=== PATIENT | female | born 1955 ===

== ENCOUNTER → 2016-08-26 | Day surgery (SDC) | payer OTHER ==
[~2016-08-26] VITALS: Ht 162.6 cm; Wt 94.3 kg
[~2016-08-26] MED LIST: ASPI1TAB PO; ATOR1TAB21 PO; CLINDAMYCIN 600 MG in APPROPRIATE DILUENT 1 EA IV ONE; HYDR12.55 PO; HYDROmorphone HCL 1 MG/ML SYRINGE (J1170) IV PRN; KETAMINE HCL 200 MG/20 ML VIAL As Ordered ONE; KETOROLAC 60 MG/2 ML VIAL (J1885) As Ordered ONE; LIDOCAINE 2% INJ 100 MG/5 ML SDV (FOR ANES.) As Ordered ONE; LIDOCAINE 2% W/ EPINEPHRINE 1.7 ML DENTAL INJ As Ordered ONE; LIDOCAINE 2% W/ EPINEPHRINE 1.7 ML DENTAL INJ XX ONE; LISI30TA4 PO; LR 1,000 ML IV SCH; LYRI75CA PO; METF500T PO; MIDAZOLAM INJ 2 MG/2 ML VIAL (J2250) As Ordered ONE; NEXI20CA PO; ONDANSETRON 4MG/2ML VIAL (J2405) As Ordered ONE; ONDANSETRON 4MG/2ML VIAL (J2405) IV PRN; PANT40TA2 PO; PERCOCET 5MG/325MG TAB PO PRN; PROPOFOL 200 MG/20 ML VIAL As Ordered ONE; [UNRECOGNIZED DRUG - OTHER] TOP; dexameTHASONE 4 MG/ML 1ML VIAL (J1100) IV ONE; fentaNYL 100 MCG/2 ML INJECTION (J3010) As Ordered ONE; fentaNYL 100 MCG/2 ML INJECTION (J3010) IV PRN
[2016-08-26 13:30] VITALS: BP 168/88
--- NOTE | 2016-08-27 08:48 | RO ---
DATE OF PROCEDURE: 08/26/2016 PREOPERATIVE DIAGNOSIS: Caries and symptomatic teeth number 2, 4, 6, 8, 10, 11, 12, and 13. POSTOPERATIVE DIAGNOSIS: Status post caries and symptomatic teeth #2, 4, 6, 8, 10, 11, 12, and 13. PROCEDURE PERFORMED: Extraction of teeth #2, 4, 6, 8, 10, 11, 12, and 13. SURGEON: Brent Méndez DMD, MD TAPPER BIT: None. ANESTHESIA: Monitored anesthesia care. SPECIMEN: None. INDICATIONS: Mrs. Dutton is a pleasant, 60-year-old female who was referred to my office for extraction of the aforementioned teeth. Past medical history revealed severe hypertension and dental anxiety, and the patient reports that she wants to be deeply sedated. Physical examination reveals Mallampati IV classification with mouth opening of about 40 mm as well as decayed and symptomatic teeth #2, 4, 6, 8, 10, 11, 12, and 13. Discussion was made with the patient regarding the procedure and the sedation, and we agreed to have the procedure done in an operating room setting under the care of anesthesiologist. Complete history and physical is in the patient's chart as well as an informed consent, which was in detail, went over with the patient and is signed in the patient's chart. DESCRIPTION OF PROCEDURE: On 08/26/2016, the patient presented to [facility] where she was met by the anesthesiologist and myself. Any last minute questions were addressed. History and physical and the consent were updated. At that point, the patient was taken back to the operating room. She was laid supine on the operating room table. Noninvasive cardiac monitors were applied. At that point, the patient underwent monitored anesthesia care/deep sedation. At this point, the patient was then prepped and draped in the usual sterile fashion. A time-out procedure was performed to identify the patient, the procedure and any other precautions. Preoperative antibiotics in the form of 600 mg of clindamycin IV were given as well as 8 mg of Decadron. At this point, an oral pack was inserted and 6 carpules of 2% lidocaine with 11:100,000 epinephrine were injected in the maxilla as local infiltrations labially and palatally. At this point, a full-thickness flap was released around teeth #2, 4, 6, 11, 12, and 13. Flap was reflected. A small amount of buccal bone was removed and teeth were then luxated and delivered with ease, followed by the routine extraction of teeth #8 and 9 with forceps. All sockets were curetted and irrigated. Flaps were closed with #3-0 chromic sutures. At this point, the oral cavity was irrigated and suctioned. Hemostasis was achieved with ease with gauze pressure. The oral pack was removed. The patient was awakened from anesthesia and delivered to the postanesthesia care unit (PACU). Complications: None. Estimated blood loss: 20 mL. Drains: There were no drains placed.
== END ==
LOC: M SDC 07:49
PROVIDERS: ATTEND Dentist
DX: K02.9 Dental caries, unspecified (principal); I10 Essential (primary) hypertension; E11.9 Type 2 diabetes mellitus without complications; E78.2 Mixed hyperlipidemia; E78.00 Pure hypercholesterolemia, unspecified; R01.1 Cardiac murmur, unspecified; M54.9 Dorsalgia, unspecified; K21.9 Gastro-esophageal reflux disease without esophagitis; F17.210 Nicotine dependence, cigarettes, uncomplicated; Z88.0 Allergy status to penicillin; Z79.899 Other long term (current) drug therapy; Z79.82 Long term (current) use of aspirin; Z79.84 Long term (current) use of oral hypoglycemic drugs
CPT/HCPCS: 88300; D7210